=== PATIENT | female | born 1990 | race Caucasian/White ===

== ENCOUNTER 2018-06-23 08:47 | Emergency (ER) | payer SELFPAY ==
[2018-06-23 09:22] VITALS: BP 128/79
--- NOTE | 2018-06-23 10:13 | UC ---
Throat Pain/Nasal Kevin HPI - HPI Summary HPI Summary: 27 yo female presents with sore throat since last night. She tells me that she noticed a white spot in her throat last night and was hoping it wouldn't "turn into something". She used OTC chloraseptic with no relief. She is able to tolerate po. Denies fever, chills, sinus symptoms, cough, rash, n/v. - History of Current Complaint Chief Complaint: UCGeneralIllness Stated Complaint: SORE THROAT Time Seen by Provider: 06/23/18 09:41 Hx Obtained From: Patient Hx Last Menstrual Period: unknown, nexplanon Onset/Duration: Sudden Onset Severity: Severe Pain Intensity: 10 Pain Scale Used: 0-10 Numeric - Allergies/Home Medications Allergies/Adverse Reactions: Allergies Allergy/AdvReac Type Severity Reaction Status Date / Time Adhesive Tape Allergy Intermediate Rash Verified 02/29/16 14:33 erythromycin base Allergy Hives Verified 06/23/18 09:19 [From Erythrocin] Home Medications: Home Medications Acetaminophen [Acetaminophen Extra Strength] 1,000 mg PO ONCE 06/23/18 [History Confirmed 06/23/18] PMH/Surg Hx/FS Hx/Imm Hx - Additional Past Medical History Additional PMH: None - Surgical History Surgical History: Yes Surgery Procedure, Year, and Place: Appendectomy - Family History Known Family History: Positive: Cardiac Disease - Social History Occupation: Employed Full-time Lives: With Family Alcohol Use: None Substance Use Type: None Smoking Status (MU): Heavy Every Day Tobacco Smoker Type: Cigarettes Amount Used/How Often: 1/2 PPD Have You Smoked in the Last Year: Yes Household Exposure Type: Cigarettes - Immunization History Most Recent Influenza Vaccination: NOT IN 2013 Review of Systems All Other Systems Reviewed And Are Negative: Yes Constitutional: Positive: Negative Skin: Positive: Negative Eyes: Positive: Negative ENT: Positive: Sore Throat Respiratory: Positive: Negative Cardiovascular: Positive: Negative Neurological: Positive: Negative Psychological: Positive: Negative Physical Exam - Summary Physical Exam Summary: GENERAL: NAD. WDWN. No pain distress. SKIN: No rashes, sores, lesions, or open wounds. HEENT: Head: AT/NC Eyes: Conjunctiva clear without inflammation or discharge. Ears: Hearing grossly normal. TMs intact, no bulging, erythema, or edema. Nose: Nasal mucosa pink and moist. NTTP maxillary and frontal sinus. Throat: Posterior oropharynx mild erythema and 2+ tonsillar enlargement. No exudates. Uvula midline. No hoarse voice or muffled voice. NECK: Supple. Nontender. No lymphadenopathy. CHEST: CTAB. No r/r/w. No accessory muscle use. Breathing comfortably and in no distress. CV: RRR. Without m/r/g. Pulses intact. Cap refill <2seconds NEURO: Alert. PSYCH: Age appropriate behavior. Triage Information Reviewed: Yes Vital Signs: Initial Vital Signs Temp 98 F 06/23/18 09:18 Pulse 95 06/23/18 09:18 Resp 18 06/23/18 09:18 BP 128/79 06/23/18 09:18 Pulse Ox 99 06/23/18 09:18 Laboratory Tests 06/23/18 09:51 Group A Strep Rapid Positive A Vital Signs Reviewed: Yes Throat Pain/Nasal Course/Dx - Course Course Of Treatment: POC strep positive. Rx for amoxicillin - Differential Dx/Diagnosis Provider Diagnosis: Strep pharyngitis Discharge - Sign-Out/Discharge Documenting (check all that apply): Patient Departure All imaging exams completed and their final reports reviewed: No Studies - Discharge Plan Condition: Stable Disposition: HOME Prescriptions: Amoxicillin PO (*) [Amoxicillin 500 MG CAP*] 500 mg PO Q12H #20 cap Patient Education Materials: Strep Throat (ED) Forms: *Work Release Referrals: No Primary Care Phys,NOPCP [Primary Care Provider] - Additional Instructions: If you develop a fever, shortness of breath, chest pain, new or worsening symptoms - please call your PCP or go to the ED. - Billing Disposition and Condition Condition: STABLE Disposition: Home
== END 2018-06-23 10:29 | disposition home or self-care (01) ==
LOC: UCCORT 08:47
DX: J02.0 Streptococcal pharyngitis (principal); F17.210 Nicotine dependence, cigarettes, uncomplicated; Z91.09 Other allergy status, other than to drugs and biological substances; Z88.1 Allergy status to other antibiotic agents
CPT/HCPCS: 87651; 99212; G0463

== ENCOUNTER 2019-02-14 08:43 | Emergency (ER) | payer SELFPAY ==
[2019-02-14 09:08] VITALS: BP 120/90
--- NOTE | 2019-02-14 09:45 | UC ---
Abdominal Pain Female HPI - HPI Summary HPI Summary: abdominal pain x 2 day pain is cramping, 6 out of 10 worse with eating, better with NPO + nausea and vomiting, + diarrhea no fever, + chills, - History of Current Complaint Chief Complaint: UCGI Stated Complaint: VOMITTING,DIARRHEA Time Seen by Provider: 02/14/19 09:29 Hx Obtained From: Patient Hx Last Menstrual Period: 02/05/19 ?: No Onset/Duration: Gradual Onset, Lasting Days - 2, Still Present Timing: Constant Severity Initially: Moderate Severity Currently: Moderate Pain Intensity: 3 Location: Diffuse Radiates: No Character: Aching, Cramping Aggravating Factor(s): Food Alleviating Factor(s): NPO Associated Signs and Symptoms: Positive: Nausea, Vomiting, Diarrhea. Negative: Fever, Cough, Chest Pain, Dizzy, Back Pain, Constipation Allergies/Adverse Reactions: Allergies Allergy/AdvReac Type Severity Reaction Status Date / Time Adhesive Tape Allergy Intermediate Rash Verified 02/14/19 09:04 erythromycin base Allergy Hives Verified 02/14/19 09:04 [From Erythrocin] Home Medications: Home Medications Ondansetron HCl [Zofran 4 MG TAB] 4 mg PO ONCE PRN 02/14/19 [History Confirmed 02/14/19] PMH/Surg Hx/FS Hx/Imm Hx Previously Healthy: Yes - Surgical History Surgical History: Yes Surgery Procedure, Year, and Place: Appendectomy - Family History Known Family History: Positive: Cardiac Disease - Social History Alcohol Use: Rare Substance Use Type: None Smoking Status (MU): Heavy Every Day Tobacco Smoker Type: Cigarettes Amount Used/How Often: 1/2 PPD Have You Smoked in the Last Year: Yes Household Exposure Type: Cigarettes - Immunization History Most Recent Influenza Vaccination: NOT IN 2013 Review of Systems All Other Systems Reviewed And Are Negative: Yes Constitutional: Positive: Chills, Fatigue Skin: Positive: Negative Eyes: Positive: Negative ENT: Positive: Negative Respiratory: Positive: Negative Cardiovascular: Positive: Negative Gastrointestinal: Positive: Abdominal Pain, Vomiting, Diarrhea, Nausea Genitourinary: Positive: Negative Is Patient Immunocompromised?: No Physical Exam Triage Information Reviewed: Yes Appearance: Ill-Appearing, Pain Distress Vital Signs: Initial Vital Signs Temp 98.5 F 02/14/19 09:05 Pulse 69 02/14/19 09:05 Resp 18 02/14/19 09:05 BP 120/90 02/14/19 09:05 Pulse Ox 100 02/14/19 09:05 Vital Signs Reviewed: Yes Eye Exam: Normal Eyes: Positive: Conjunctiva Clear ENT: Positive: Normal ENT inspection, Hearing grossly normal, Pharynx normal Neck: Positive: Supple, Nontender, No Lymphadenopathy Respiratory: Positive: Chest non-tender, Lungs clear, Normal breath sounds Cardiovascular: Positive: RRR, No Murmur, Pulses Normal Abdomen Description: Positive: Soft, Other: - diffuse tenderness. Negative: CVA Tenderness (R), CVA Tenderness (L), Distended, Guarding Bowel Sounds: Positive: Present Skin Exam: Normal Abd Pain Female Course/Dx - Differential Dx/Diagnosis Provider Diagnosis: Gastroenteritis Discharge ED - Sign-Out/Discharge Documenting (check all that apply): Patient Departure All imaging exams completed and their final reports reviewed: No Studies - Discharge Plan Condition: Stable Disposition: HOME Prescriptions: Ondansetron ODT TAB* [Zofran 4 MG Odt TAB*] 8 mg PO Q8H PRN #9 tab.odt PRN Reason: Nausea/Vomiting Patient Education Materials: Gastroenteritis (ED) Forms: *Work Release Referrals: No Primary Care Phys,NOPCP [Primary Care Provider] - If Needed - Billing Disposition and Condition Condition: STABLE Disposition: Home
== END 2019-02-14 09:45 | disposition home or self-care (01) ==
LOC: UCCORT 08:43
DX: K52.9 Noninfective gastroenteritis and colitis, unspecified (principal); F17.210 Nicotine dependence, cigarettes, uncomplicated; Z91.09 Other allergy status, other than to drugs and biological substances; Z88.8 Allergy status to other drugs, medicaments and biological substances
CPT/HCPCS: 99212; G0463